=== PATIENT | female | born 1980 ===

== ENCOUNTER 2021-04-06 05:22 | Day surgery (SDC) | payer OTHER | END 2021-04-06 16:10 | disposition home or self-care (01) | LOC: CIR.AMB 05:22 | PROVIDERS: ATTEND Obstetrics & Gynecology | DX: N84.0 Polyp of corpus uteri (principal); Z20.822 Contact with and (suspected) exposure to COVID-19 ==

== ENCOUNTER 2022-08-02 08:35 | Day surgery (SDC) | payer OTHER | END 2022-08-02 18:50 | disposition home or self-care (01) | LOC: CIR.AMB 08:35 | PROVIDERS: ATTEND Colon & Rectal Surgery | DX: K64.8 Other hemorrhoids (principal); K64.4 Residual hemorrhoidal skin tags; Z88.2 Allergy status to sulfonamides; Z91.040 Latex allergy status; Z20.822 Contact with and (suspected) exposure to COVID-19 ==

== ENCOUNTER 2022-08-14 09:14 | Emergency (ER) | payer OTHER ==
[~2022-08-14] VITALS: Ht 160 cm; Wt 68.0 kg
[2022-08-14] MEDS ORDERED: METRONIDAZOLE500 MG PO (17:58)
[2022-08-14] MEDS ORDERED: CIPRO500 MG PO (17:58)
[2022-08-14] MEDS ORDERED: LEVSIN/SL0.125 MG SL (17:58)
[2022-08-14] MEDS ORDERED: OMEPRAZOLE40 MG PO (17:58)
== END 2022-08-14 18:10 | disposition home or self-care (01) ==
LOC: ER 09:14
DX: K51.00 Ulcerative (chronic) pancolitis without complications (principal); Z88.2 Allergy status to sulfonamides; Z91.040 Latex allergy status